=== PATIENT | male | born 1985 | race Caucasian/White ===

== ENCOUNTER 2018-07-02 18:26 | Emergency (ER) | payer BC ==
--- NOTE | 2018-07-02 18:45 | ERPHSYRPT ---
- History of Present Illness Time Seen by Provider: 07/02/18 18:35 Source: patient Patient Subjective Stated Complaint: Pt states "I have a broken tooth and I filled it with temporary filling until I can get to my dental appointment on morning but this morning my lower jaw started to swell." Triage Nursing Assessment: Pt alert and oriented X 3, skin pwd. Pt ambulates with an upright steady gait, able to speak in clear full sentences. pt left lower jaw swollen and warm, pt has broken lower tooth on the left lower jaw. Physician History: 33 y/o white male presents with approx 1 to 2 day h/o left lower dental pain. pt broke tooth a month or so ago but was moving and pain not too bad until a day or so ago. pt noticed swelling left jaw. swelling worse today. pt has dental appt 07/04/17 Timing/Duration: gradual onset Severity: moderate ENT Location: dental Prearrival Treatment: over the counter meds Associated Symptoms: facial pain/swelling (left jaw), tooth pain, No swollen glands, No sore throat, No difficulty swallowing, No voice change Allergies/Adverse Reactions: nutmeg oil (Myristica seed oil) Allergy (Severe, Verified 07/02/18 18:36) Swelling Hx Tetanus, Diphtheria Vaccination/Date Given: Yes Hx Influenza Vaccination/Date Given: No Hx Pneumococcal Vaccination/Date Given: No Immunizations Up to Date: Yes - Review of Systems Constitutional: No Symptoms Eyes: No Symptoms Ears, Nose, & Throat: Other (dental pain) Respiratory: No Symptoms Cardiac: No Symptoms Abdominal/Gastrointestinal: No Symptoms Genitourinary Symptoms: No Symptoms Musculoskeletal: No Symptoms Skin: No Symptoms Neurological: No Symptoms Psychological: No Symptoms Endocrine: No Symptoms Hematologic/Lymphatic: No Symptoms Immunological/Allergic: No Symptoms All Other Systems: Reviewed and Negative - Past Medical History Pertinent Past Medical History: No Neurological History: No Pertinent History ENT History: No Pertinent History Cardiac History: No Pertinent History Respiratory History: No Pertinent History Endocrine Medical History: No Pertinent History Musculoskeletal History: No Pertinent History GI Medical History: No Pertinent History History: No Pertinent History Psycho-Social History: No Pertinent History Male Reproductive Disorders: No Pertinent History - Past Surgical History Past Surgical History: No Neuro Surgical History: No Pertinent History Cardiac: No Pertinent History, Vascular Surgery Respiratory: No Pertinent History Gastrointestinal: No Pertinent History Genitourinary: No Pertinent History Musculoskeletal: No Pertinent History Male Surgical History: No Pertinent History - Social History Smoking Status: Current every day smoker How long have you smoked: years Exposure to second hand smoke: Yes Drug Use: none Patient Lives Alone: Yes - Nursing Vital Signs Nursing Vital Signs: Initial Vital Signs Temperature 98.5 F 07/02/18 18:30 Pulse Rate 74 07/02/18 18:30 Respiratory Rate 18 07/02/18 18:30 Blood Pressure 129/90 07/02/18 18:30 O2 Sat by Pulse Oximetry 100 07/02/18 18:30 Pain Scale Pain Intensity 8 - Physical Exam General Appearance: no apparent distress, alert Eye Exam: bilateral eye: normal inspection, PERRL, EOMI Ear Exam: bilateral ear: auricle normal, canal normal, TM normal Nasal Exam: normal inspection Throat Exam: mandibular swelling (left with left lower dental) Neck Exam: normal inspection, non-tender, supple, full range of motion, trachea midline Cardiovascular/Respiratory Exam: chest non-tender Abdominal Exam: non-tender Neurologic Exam: alert, oriented x 3, cooperative, blender/braze applicator II-XII nml as tested Skin Exam: normal color, warm, dry SpO2 Interpretation: normal SpO2: 100 Oxygen Delivery: Room Air Ordered Tests: Medication Summary Discontinued Medications Generic Name Dose Route Start Last Admin Trade Name Freq PRN Reason Stop Dose Admin Amoxicillin 500 mg 07/02/18 18:51 07/02/18 18:54 Amoxil 500 Mg PO 07/02/18 18:52 500 mg STAT ONE Administration - Progress Progress: unchanged Counseled pt/family regarding: diagnosis, need for follow-up - Departure Time of Disposition: 18:45 Departure Disposition: Home Clinical Impression: Dental infection Condition: Stable Critical Care Time: No Additional Instructions: add ibuprofen for pain. keep you dental appointment on 07/04/18 Prescriptions: Hydrocodone/APAP 5/325 [Catano 5/325 mg] 1 each PO Q8H PRN PRN #6 tablet MDD 3 PRN Reason: Pain Amoxicillin 500 mg Cap [Amoxil 500 mg] 500 mg PO TID #30 capsule
[2018-07-02] MEDS ORDERED: AMOXIL 500 MG PO ONE (18:51)
[2018-07-02] MEDS ORDERED: AMOXIL 500 MG ONE (18:53)
[2018-07-02 19:03] VITALS: BP 131/85; PULSE 72; O2SAT 99
== END 2018-07-02 19:06 | disposition home or self-care (01) ==
LOC: ED 18:26
DX: K04.7 Periapical abscess without sinus (principal)
CPT/HCPCS: 99283; A9270-GY